=== PATIENT | female | born 1940 | race Caucasian/White ===

== ENCOUNTER 2021-03-25 12:09 | Emergency (ER) | payer MEDICARE, OTHER ==
[~2021-03-25] VITALS: Wt 90.7 kg
[2021-03-25 15:36] LABS: BASO # 0.1 10*3/uL (0.0-0.1); BASO % 0.7 % (0.0-1.0); EOS # 0.3 10*3/uL (0.0-0.4); EOS % 2.9 % (1.0-4.0); HEMATOCRIT 39.5 % (37.0-47.0); LYMPH % 20.9 % (27.0-41.0); MEAN CELL VOLUME 99.7 fl (81.0-99.0); MEAN CORPUSCULAR HGB 32.3 pg (27.0-31.0); MEAN CORPUSCULAR HGB CONC 32.4 g/dl (33.0-37.0); MONO # 0.8 10*3/uL (0.1-1.0); MONO % 8.2 % (3.0-9.0); NEUT # 6.3 10*3/uL (2.3-7.9); NEUT % 67.1 % (47.0-73.0); PLATELET COUNT AUTOMATED 282 10*3/uL (130-400); RED BLOOD COUNT 3.96 10*6/uL (4.10-5.10); WHITE BLOOD COUNT 9.4 10*3/uL (4.8-10.8)
[2021-03-25 15:53] LABS: ALBUMIN 3.6 gm/dl (3.1-4.5); CREATININE 1.09 mg/dL (0.55-1.02); POTASSIUM 4.4 mmol/L (3.5-5.1); TOTAL PROTEIN 7.8 gm/dL (6.4-8.2)
[2021-03-25 16:32] LABS: BILIRUBIN Negative (Negative); BLOOD Negative (Negative); CLARITY Clear (Clear); COLOR Yellow (Yellow); GLUCOSE Negative (Negative); KETONE Negative (Negative); LEUKO ESTERASE Negative (Negative); NITRITE Negative (Negative); SPECIFIC GRAVITY 1.015 (1.001-1.030); UROBILINOGEN 0.2 E.U./dl (0.0-1.0)
[2021-03-25 16:52] LABS: BACTERIA TRACE; EPITHELIAL CELLS 21-30; WBC 0-2 wbc/hpf (0-5)
== END 2021-03-25 17:03 | disposition home or self-care (01) ==
LOC: ED 12:09
PROVIDERS: Physician Assistant
DX: R07.89 Other chest pain (principal); R07.81 Pleurodynia; Z88.2 Allergy status to sulfonamides; Z98.890 Other specified postprocedural states; Z98.51 Tubal ligation status; Z96.653 Presence of artificial knee joint, bilateral; X58.XXXA Exposure to other specified factors, initial encounter; Y93.89 Activity, other specified; Y92.89 Other specified places as the place of occurrence of the external cause; Y99.8 Other external cause status

== ENCOUNTER → 2022-09-12 | Outpatient (CLI) | payer MEDICARE ==
[2022-09-12 09:42] LABS: BASO # 0.1 10*3/uL (0.0-0.1); BASO % 1.1 % (0.0-1.0); EOS # 0.4 10*3/uL (0.0-0.4); EOS % 4.5 % (1.0-4.0); HEMATOCRIT 32.8 % (37.0-47.0); LYMPH # 1.8 10*3/uL (1.3-4.4); LYMPH % 18.9 % (27.0-41.0); MEAN CORPUSCULAR HGB 33.5 pg (27.0-31.0); MEAN CORPUSCULAR HGB CONC 33.5 g/dl (33.0-37.0); MEAN PLATELET VOLUME 10.5 fl (9.6-12.3); MONO % 10.9 % (3.0-9.0); NEUT # 6.1 10*3/uL (2.3-7.9); NEUT % 64.3 % (47.0-73.0); PLATELET COUNT AUTOMATED 300 10*3/uL (130-400); RED BLOOD COUNT 3.28 10*6/uL (4.10-5.10); RED CELL DISTRI WIDTH 12.3 % (0-14.5); WHITE BLOOD COUNT 9.5 10*3/uL (4.8-10.8)
[2022-09-12 10:05] LABS: CREATININE 1.91 mg/dL (0.55-1.02); POTASSIUM 4.2 mmol/L (3.4-5.1)
[2022-09-12 10:40] LABS: VITAMIN D, 25-HYDROXY 79.7 ng/mL (30-100)
[2022-09-12 11:40] LABS: URINE CREATININE RANDOM 27.11 mg/dL
[2022-09-12 11:44] LABS: BILIRUBIN Negative (Negative); BLOOD Negative (Negative); CLARITY Clear (Clear); COLOR Yellow (Yellow); GLUCOSE Negative (Negative); KETONE Negative (Negative); LEUKO ESTERASE Negative (Negative); NITRITE Negative (Negative); PH 5.5 (4.5-8.0); UROBILINOGEN 0.2 E.U./dl (0.0-1.0)
[2022-09-12 12:00] LABS: RBC 0-2 rbc/hpf (0-2); WBC 0-2 wbc/hpf (0-5)
== END | disposition home or self-care (01) ==
LOC: LAB 09:06 → US 09:30
PROVIDERS: ATTEND Internal Medicine Nephrology
DX: N18.32 Chronic kidney disease, stage 3b (principal); D63.1 Anemia in chronic kidney disease; N25.81 Secondary hyperparathyroidism of renal origin; N28.1 Cyst of kidney, acquired

== ENCOUNTER 2023-06-27 12:52 | Inpatient (IN) | payer MEDICARE, OTHER ==
[~2023-06-27] VITALS: Ht 160 cm; Wt 71.8 kg
[~2023-06-27 12:52] MED LIST: ASPIRIN ADULT L81 M1 PO; B12-FOLIC ACID1 EACH PO; BILBERRY EXTRAC80 MG PO; BIOTIN2500 MCG PO; CITRACAL-D3 201 EACH PO; CLONIDINE HCL0.1 MG PO; HYDR25T PO; INDERAL XL80 MG PO; LASIX20 MG PO; LEXAPRO20 MG PO; LOSARTAN POTAS100 M1 PO; LUTEIN20 M2 PO; Mysoline50 MG PO; NIFEDIPINE ER90 M1 PO; OLANZAPINE10 MG PO; REMERON SOLTAB45 MG PO; SIMVASTATIN10 MG PO; SOLIFENACIN SUCC5 MG PO; TART CHERRY E1000 MG PO; [UNRECOGNIZED DRUG - OTHER] PO
[2023-06-27 12:59] VITALS: BP 173/66
[2023-06-27] MEDS ORDERED: [UNRECOGNIZED DRUG - CODE] PO (13:29)
[2023-06-27 13:46] LABS: BASO # 0.1 10*3/uL (0.0-0.1); BASO % 0.6 % (0.0-1.0); EOS # 0.3 10*3/uL (0.0-0.4); EOS % 2.3 % (1.0-4.0); HEMATOCRIT 32.5 % (37.0-47.0); LYMPH # 1.2 10*3/uL (1.3-4.4); LYMPH % 8.2 % (27.0-41.0); MEAN CELL VOLUME 96.7 fl (81.0-99.0); MEAN CORPUSCULAR HGB 31.5 pg (27.0-31.0); MEAN CORPUSCULAR HGB CONC 32.6 g/dl (33.0-37.0); MEAN PLATELET VOLUME 9.3 fl (9.6-12.3); MONO # 1.2 10*3/uL (0.1-1.0); MONO % 8.7 % (3.0-9.0); NEUT # 11.2 10*3/uL (2.3-7.9); NEUT % 78.9 % (47.0-73.0); PLATELET COUNT AUTOMATED 530 10*3/uL (130-400); RED BLOOD COUNT 3.36 10*6/uL (4.10-5.10); RED CELL DISTRI WIDTH 14.2 % (0-14.5); WHITE BLOOD COUNT 14.2 10*3/uL (4.8-10.8)
[2023-06-27 14:07] LABS: POTASSIUM 3.4 mmol/L (3.4-5.1); TOTAL PROTEIN 7.6 gm/dL (6.0-8.0)
[2023-06-27 18:10] VITALS: BP 153/59
[2023-06-27] MEDS ORDERED: CLONIDINE0.2 MG PO (19:04)
[2023-06-27] MEDS ORDERED: 'CLONIDINE0.1 MG PO (19:04)
[2023-06-27 20:00] VITALS: BP 133/53
[2023-06-28] VITALS: BP 118/46
[2023-06-28 06:00] LABS: BASO # 0.1 10*3/uL (0.0-0.1); BASO % 0.5 % (0.0-1.0); EOS # 0.1 10*3/uL (0.0-0.4); EOS % 0.8 % (1.0-4.0); HEMATOCRIT 29.6 % (37.0-47.0); LYMPH # 1.8 10*3/uL (1.3-4.4); LYMPH % 16.6 % (27.0-41.0); MEAN CELL VOLUME 97.4 fl (81.0-99.0); MEAN CORPUSCULAR HGB 30.6 pg (27.0-31.0); MEAN CORPUSCULAR HGB CONC 31.4 g/dl (33.0-37.0); MEAN PLATELET VOLUME 9.5 fl (9.6-12.3); MONO % 9.3 % (3.0-9.0); NEUT # 7.5 10*3/uL (2.3-7.9); NEUT % 70.3 % (47.0-73.0); PLATELET COUNT AUTOMATED 520 10*3/uL (130-400); RED BLOOD COUNT 3.04 10*6/uL (4.10-5.10); RED CELL DISTRI WIDTH 14.2 % (0-14.5); WHITE BLOOD COUNT 10.6 10*3/uL (4.8-10.8)
[2023-06-28 06:15] LABS: FREE T4 1.08 ng/dl (0.89-1.76); POTASSIUM 3.6 mmol/L (3.4-5.1); TOTAL PROTEIN 6.8 gm/dL (6.0-8.0)
[2023-06-28 08:00] VITALS: BP 135/64
[2023-06-28 08:04] LABS: VITAMIN D, 25-HYDROXY 66.4 ng/mL (30-100)
[2023-06-28 12:00] VITALS: BP 153/65
[2023-06-28 16:00] VITALS: BP 109/44
[2023-06-28 20:00] VITALS: BP 118/46
[2023-06-29] VITALS: BP 150/60
[2023-06-29 06:15] LABS: HEMATOCRIT 28.5 % (37.0-47.0); MEAN CELL VOLUME 95.3 fl (81.0-99.0); MEAN CORPUSCULAR HGB 31.1 pg (27.0-31.0); MEAN CORPUSCULAR HGB CONC 32.6 g/dl (33.0-37.0); MEAN PLATELET VOLUME 9.5 fl (9.6-12.3); PLATELET COUNT AUTOMATED 508 10*3/uL (130-400); RED BLOOD COUNT 2.99 10*6/uL (4.10-5.10); RED CELL DISTRI WIDTH 14.4 % (0-14.5); WHITE BLOOD COUNT 11.6 10*3/uL (4.8-10.8)
[2023-06-29 06:19] LABS: MANUAL DIFF REFLEX YES
[2023-06-29 06:36] LABS: POTASSIUM 3.5 mmol/L (3.4-5.1)
[2023-06-29 07:13] LABS: PLATELET SUFFICIENCY HIGH (NORMAL); TOTAL CELLS COUNTED 100 #CELLS
[2023-06-29 07:14] LABS: POLYCHROMASIA SLIGHT
[2023-06-29 08:08] VITALS: BP 152/60
[2023-06-29 12:00] VITALS: BP 128/48
[2023-06-29 16:00] VITALS: BP 148/57
[2023-06-29 20:00] VITALS: BP 143/62
[2023-06-30] VITALS: BP 152/61
[2023-06-30 06:07] LABS: HEMATOCRIT 28.3 % (37.0-47.0); MEAN CELL VOLUME 98.3 fl (81.0-99.0); MEAN CORPUSCULAR HGB 31.3 pg (27.0-31.0); MEAN CORPUSCULAR HGB CONC 31.8 g/dl (33.0-37.0); MEAN PLATELET VOLUME 9.3 fl (9.6-12.3); PLATELET COUNT AUTOMATED 506 10*3/uL (130-400); RED BLOOD COUNT 2.88 10*6/uL (4.10-5.10); RED CELL DISTRI WIDTH 14.7 % (0-14.5); TOTAL PROTEIN 6.1 gm/dL (6.0-8.0); WHITE BLOOD COUNT 12.4 10*3/uL (4.8-10.8)
[2023-06-30 06:16] LABS: MANUAL DIFF REFLEX YES
[2023-06-30 07:38] LABS: PLATELET SUFFICIENCY HIGH (NORMAL); POLYCHROMASIA SLIGHT; TOTAL CELLS COUNTED 100 #CELLS
[2023-06-30 08:00] VITALS: BP 159/75
[2023-06-30 12:00] VITALS: BP 160/76
[2023-06-30 16:00] VITALS: BP 150/54
[2023-06-30 20:00] VITALS: BP 153/76
[2023-07-01] VITALS: BP 177/69
[2023-07-01 05:10] VITALS: BP 194/63
[2023-07-01 06:56] LABS: HEMATOCRIT 31.5 % (37.0-47.0); MANUAL DIFF REFLEX YES; MEAN CELL VOLUME 98.7 fl (81.0-99.0); MEAN CORPUSCULAR HGB CONC 31.4 g/dl (33.0-37.0); MEAN PLATELET VOLUME 9.6 fl (9.6-12.3); PLATELET COUNT AUTOMATED 560 10*3/uL (130-400); RED BLOOD COUNT 3.19 10*6/uL (4.10-5.10)
[2023-07-01 07:25] LABS: CHLORIDE 110 mmol/L (98-107); POTASSIUM 4.2 mmol/L (3.4-5.1)
[2023-07-01 07:49] LABS: BUN 22 mg/dl (9-23)
[2023-07-01 07:53] LABS: PLATELET SUFFICIENCY HIGH (NORMAL); POLYCHROMASIA SLIGHT; TOTAL CELLS COUNTED 100 #CELLS; TOXIC GRANULATION SLIGHT
[2023-07-01 07:54] LABS: OVALOCYTES FEW
[2023-07-01 08:00] VITALS: BP 192/70
[2023-07-01 11:38] LABS: ABG BASE EXCESS 2.9 mmol/L (-2.0-2.0); ARTERIAL BLOOD GAS PH 7.536 (7.35-7.45)
[2023-07-01 12:00] VITALS: BP 141/54
[2023-07-01 16:00] VITALS: BP 188/64
[2023-07-01 20:00] VITALS: BP 155/72
[2023-07-02] VITALS: BP 152/67
[2023-07-02 02:28] LABS: BILIRUBIN Negative (Negative); BLOOD Negative (Negative); CLARITY Clear (Clear); COLOR Yellow (Yellow); GLUCOSE Negative (Negative); KETONE Negative (Negative); LEUKO ESTERASE Negative (Negative); NITRITE Negative (Negative); SPECIFIC GRAVITY 1.015 (1.001-1.030); UROBILINOGEN 0.2 E.U./dl (0.0-1.0)
[2023-07-02 02:39] LABS: EPITHELIAL CELLS 16-20; MUCOUS 1+; RBC 0-2 rbc/hpf (0-2)
[2023-07-02 07:11] LABS: HEMATOCRIT 33.5 % (37.0-47.0); MEAN CORPUSCULAR HGB 30.7 pg (27.0-31.0); MEAN CORPUSCULAR HGB CONC 31.9 g/dl (33.0-37.0); MEAN PLATELET VOLUME 9.3 fl (9.6-12.3); PLATELET COUNT AUTOMATED 588 10*3/uL (130-400); RED BLOOD COUNT 3.49 10*6/uL (4.10-5.10); RED CELL DISTRI WIDTH 15.2 % (0-14.5); WHITE BLOOD COUNT 17.8 10*3/uL (4.8-10.8)
[2023-07-02 07:15] LABS: MANUAL DIFF REFLEX YES
[2023-07-02 07:40] LABS: BUN 22 mg/dl (9-23); CHLORIDE 107 mmol/L (98-107); POTASSIUM 4.1 mmol/L (3.4-5.1)
[2023-07-02 07:51] LABS: BASOPHILS 1 % (0-1); BURR CELLS FEW; PLATELET SUFFICIENCY HIGH (NORMAL); POLYCHROMASIA SLIGHT; TOTAL CELLS COUNTED 100 #CELLS
[2023-07-02 07:52] LABS: ROULEAUX SLIGHT; TARGET CELLS FEW; TOXIC GRANULATION SLIGHT; VACUOLATION OF NEUTROPHILS SLIGHT
[2023-07-02 12:00] VITALS: BP 141/67
[2023-07-02] MEDS ORDERED: MUCUS RELIEF600 MG PO (14:12)
[2023-07-02] MEDS ORDERED: ZITHROMAX TRI-500 M1 PO (14:19)
== END 2023-07-02 16:50 | DRG 871 ==
LOC: ED 12:52 → 4E 15:41 → EDHOLD 15:41 → 4E 16:34
PROVIDERS: Internal Medicine; Internal Medicine Critical Care Medicine; Nurse Practitioner Family; Student in an Organized Health Care Education/Training Program; ADMIT Student in an Organized Health Care Education/Training Program; ATTEND Student in an Organized Health Care Education/Training Program
PROC: 5A09357 Assistance with Respiratory Ventilation, Less than 24 Consecutive Hours, Continuous Positive Airway Pressure (ICD-10-PCS; 2023-06-28)
PROC: BD15YZZ Fluoroscopy of Upper GI using Other Contrast (ICD-10-PCS; principal; 2023-07-02)
DX: A41.9 Sepsis, unspecified organism (principal); J18.9 Pneumonia, unspecified organism; J96.01 Acute respiratory failure with hypoxia; N17.0 Acute kidney failure with tubular necrosis; J44.0 Chronic obstructive pulmonary disease with (acute) lower respiratory infection; I13.0 Hypertensive heart and chronic kidney disease with heart failure and stage 1 through stage 4 chronic kidney disease, or unspecified chronic kidney disease; J44.1 Chronic obstructive pulmonary disease with (acute) exacerbation; Z96.632 Presence of left artificial wrist joint; Z96.631 Presence of right artificial wrist joint; N18.9 Chronic kidney disease, unspecified; F41.9 Anxiety disorder, unspecified; F32.A Depression, unspecified; I50.9 Heart failure, unspecified; R65.20 Severe sepsis without septic shock; D64.9 Anemia, unspecified; D75.839 Thrombocytosis, unspecified; R73.9 Hyperglycemia, unspecified; E88.09 Other disorders of plasma-protein metabolism, not elsewhere classified; Z88.2 Allergy status to sulfonamides; Z82.49 Family history of ischemic heart disease and other diseases of the circulatory system; Z98.891 History of uterine scar from previous surgery; Z98.51 Tubal ligation status; Z87.891 Personal history of nicotine dependence

== ENCOUNTER → 2023-12-26 | Outpatient (CLI) | payer MEDICARE, OTHER ==
[~2023-12-26] MED LIST changes: +'CLONIDINE0.1 MG PO; +CLONIDINE0.2 MG PO; +MUCUS RELIEF600 MG PO; +ZITHROMAX TRI-500 M1 PO; +[UNRECOGNIZED DRUG - CODE] PO
== END | disposition home or self-care (01) ==
LOC: US 00:34
PROVIDERS: ATTEND Internal Medicine Nephrology
DX: N28.1 Cyst of kidney, acquired (principal); N17.9 Acute kidney failure, unspecified; I10 Essential (primary) hypertension; N28.89 Other specified disorders of kidney and ureter

== ENCOUNTER 2024-10-28 21:14 | Emergency (ER) | payer MEDICARE, OTHER ==
[~2024-10-28] VITALS: Ht 160 cm; Wt 86.4 kg
[~2024-10-28 21:14] MED LIST changes: +DOXYCYCLINE HY100 M3 PO; +FLONASE ALLERG9.9 ML NAS; +LEXAPRO10 MG PO; +PREDNISONE10 MG PO; +TUBERSOL1 M1 IC
[2024-10-28 21:52] LABS: HEMATOCRIT 32.3 % (37.0-47.0); MANUAL DIFF REFLEX YES; MEAN CELL VOLUME 101.3 fl (81.0-99.0); MEAN CORPUSCULAR HGB CONC 31.6 g/dl (33.0-37.0); MEAN PLATELET VOLUME 9.6 fl (9.6-12.3); PLATELET COUNT AUTOMATED 274 10*3/uL (130-400); RED BLOOD COUNT 3.19 10*6/uL (4.10-5.10); RED CELL DISTRI WIDTH 13.1 % (0-14.5); WHITE BLOOD COUNT 11.2 10*3/uL (4.8-10.8)
[2024-10-28 22:14] LABS: ALKALINE PHOSPHATASE 131 U/L (46-116); BUN 45 mg/dl (9-23); CHLORIDE 105 mmol/L (98-107); POTASSIUM 4.1 mmol/L (3.4-5.1); SGPT/ALT 9 U/L (5-49); TOTAL PROTEIN 6.9 gm/dL (6.0-8.0)
[2024-10-28 22:20] LABS: BURR CELLS FEW; PLATELET SUFFICIENCY NORMAL (NORMAL); TOTAL CELLS COUNTED 100 #CELLS
[2024-10-28 22:21] LABS: OVALOCYTES FEW
[2024-10-28] MEDS ORDERED: AVPAK AZITHROM250 M1 PO (22:42)
[2024-10-28] MEDS ORDERED: PREDNISONE20 M1 PO (22:42)
[2024-10-28] MEDS ORDERED: methylPREDNISolone sod succ 125 MG VIAL IM ONE (22:45)
[2024-10-28] MEDS ORDERED: AZITHROMYCIN 250 MG TAB PO ONE (22:45)
== END 2024-10-28 22:55 | disposition home or self-care (01) ==
LOC: ED 21:14
PROVIDERS: Nurse Practitioner Family
DX: J44.9 Chronic obstructive pulmonary disease, unspecified (principal); Z20.822 Contact with and (suspected) exposure to COVID-19; D63.1 Anemia in chronic kidney disease; E78.5 Hyperlipidemia, unspecified; F41.9 Anxiety disorder, unspecified; I13.0 Hypertensive heart and chronic kidney disease with heart failure and stage 1 through stage 4 chronic kidney disease, or unspecified chronic kidney disease; N18.9 Chronic kidney disease, unspecified; I50.9 Heart failure, unspecified; Z88.2 Allergy status to sulfonamides; Z96.653 Presence of artificial knee joint, bilateral; Z98.890 Other specified postprocedural states; Z87.891 Personal history of nicotine dependence

== ENCOUNTER 2025-02-05 02:53 | Emergency (ER) | payer MEDICARE, OTHER ==
[~2025-02-05] VITALS: Ht 160 cm; Wt 90.3 kg
[~2025-02-05 02:53] MED LIST changes: +AEROECLIPSE II1 EACH MC; +AVPAK AZITHROM250 M1 PO; +Ipratropium Brom3 ML INH; +PREDNISONE20 M1 PO; +ZITHROMAX250 MG PO
[2025-02-05] MEDS ORDERED: Albuterol Sulf/Ipratropium 3 ML VIAL NEB ONE (03:00)
[2025-02-05] MEDS ORDERED: FUROSEMIDE 40 MG/4 ML VIAL IV ONE (03:00)
[2025-02-05 03:25] LABS: BASO # 0.1 10*3/uL (0.0-0.1); EOS # 0.5 10*3/uL (0.0-0.4); EOS % 6.3 % (1.0-4.0); HEMATOCRIT 32.9 % (37.0-47.0); MEAN CELL VOLUME 103.5 fl (81.0-99.0); MEAN CORPUSCULAR HGB 31.8 pg (27.0-31.0); MEAN CORPUSCULAR HGB CONC 30.7 g/dl (33.0-37.0); MEAN PLATELET VOLUME 9.8 fl (9.6-12.3); MONO # 0.9 10*3/uL (0.1-1.0); MONO % 11.4 % (3.0-9.0); NEUT # 4.8 10*3/uL (2.3-7.9); NEUT % 61.8 % (47.0-73.0); PLATELET COUNT AUTOMATED 258 10*3/uL (130-400); RED BLOOD COUNT 3.18 10*6/uL (4.10-5.10); RED CELL DISTRI WIDTH 13.7 % (0-14.5); WHITE BLOOD COUNT 7.7 10*3/uL (4.8-10.8)
[2025-02-05 03:47] LABS: POTASSIUM 4.6 mmol/L (3.4-5.1); TOTAL PROTEIN 6.4 gm/dL (6.0-8.0)
[2025-02-05] MEDS ORDERED: ALBUTEROL 8 GM INHALER INH PRN (05:35)
[2025-02-05] MEDS ORDERED: PREDNISONE20 M1 PO (05:35)
== END 2025-02-05 06:35 | disposition home or self-care (01) ==
LOC: ED 02:53
PROVIDERS: Emergency Medicine
DX: J44.1 Chronic obstructive pulmonary disease with (acute) exacerbation (principal); I50.33 Acute on chronic diastolic (congestive) heart failure; D64.9 Anemia, unspecified; R06.00 Dyspnea, unspecified; R60.0 Localized edema; Z88.2 Allergy status to sulfonamides; Z79.899 Other long term (current) drug therapy; Z98.890 Other specified postprocedural states; Z96.653 Presence of artificial knee joint, bilateral; Z87.891 Personal history of nicotine dependence; E66.9 Obesity, unspecified; Z68.34 Body mass index [BMI] 34.0-34.9, adult

== ENCOUNTER 2025-03-05 12:16 | Emergency (ER) | payer MEDICARE, OTHER ==
[2025-03-05 13:20] LABS: BASO # 0.1 10*3/uL (0.0-0.1); BASO % 0.8 % (0.0-1.0); EOS # 0.4 10*3/uL (0.0-0.4); EOS % 3.2 % (1.0-4.0); HEMATOCRIT 35.5 % (37.0-47.0); MEAN CELL VOLUME 102.3 fl (81.0-99.0); MEAN CORPUSCULAR HGB 31.4 pg (27.0-31.0); MEAN CORPUSCULAR HGB CONC 30.7 g/dl (33.0-37.0); MEAN PLATELET VOLUME 9.8 fl (9.6-12.3); MONO # 1.1 10*3/uL (0.1-1.0); MONO % 9.4 % (3.0-9.0); NEUT # 8.2 10*3/uL (2.3-7.9); PLATELET COUNT AUTOMATED 322 10*3/uL (130-400); RED BLOOD COUNT 3.47 10*6/uL (4.10-5.10); RED CELL DISTRI WIDTH 13.1 % (0-14.5); WHITE BLOOD COUNT 11.8 10*3/uL (4.8-10.8)
[2025-03-05 13:31] LABS: ACT PARTIAL THROMBO TIME 24.7 SECONDS (20.0-32.1)
[2025-03-05 13:41] LABS: POTASSIUM 4.8 mmol/L (3.4-5.1); TOTAL PROTEIN 7.2 gm/dL (6.0-8.0)
[2025-03-05 14:25] LABS: BILIRUBIN Negative (Negative); BLOOD Negative (Negative); CLARITY Clear (Clear); COLOR Yellow (Yellow); GLUCOSE Negative (Negative); KETONE Negative (Negative); LEUKO ESTERASE Negative (Negative); NITRITE Negative (Negative); UROBILINOGEN 0.2 E.U./dl (0.0-1.0)
[2025-03-05 14:47] LABS: RBC 0-2 rbc/hpf (0-2); WBC 0-2 wbc/hpf (0-5)
[2025-03-05 14:48] LABS: BACTERIA TRACE
[2025-03-05] MEDS ORDERED: AVPAK AZITHROM250 MG PO (16:18)
== END 2025-03-05 16:43 | disposition home or self-care (01) ==
LOC: ED 12:16
PROVIDERS: Internal Medicine
DX: J40 Bronchitis, not specified as acute or chronic (principal); Z79.899 Other long term (current) drug therapy; Z88.2 Allergy status to sulfonamides; Z96.653 Presence of artificial knee joint, bilateral; Z98.890 Other specified postprocedural states; I50.9 Heart failure, unspecified; F32.A Depression, unspecified; F41.9 Anxiety disorder, unspecified

== ENCOUNTER → 2025-06-25 | Outpatient (CLI) | payer MEDICARE, OTHER ==
[~2025-06-25] MED LIST changes: +ASPIRIN ADULT L81 M2 PO; +AVPAK AZITHROM250 MG PO; +VIBRA-TAB100 MG PO
== END | disposition home or self-care (01) ==
LOC: CT 06-18 09:00
PROVIDERS: ATTEND Neurological Surgery
DX: I67.82 Cerebral ischemia (principal); G31.89 Other specified degenerative diseases of nervous system; J32.0 Chronic maxillary sinusitis; M19.09 Primary osteoarthritis, other specified site; G96.08 Other cranial cerebrospinal fluid leak